=== PATIENT | female | born 1965 | race Caucasian/White ===

== ENCOUNTER → 2023-11-17 14:51 | Outpatient (CLI) | payer OTHER, SELFPAY | PROVIDERS: PCP Family Medicine; Visit Provider Family Medicine | DX: R07.0 Pain in throat (principal) | CPT/HCPCS: 87070; 87147 ==

== ENCOUNTER → 2025-07-27 11:25 | Outpatient (CLI) | payer OTHER, SELFPAY ==
[2025-07-27 19:32] LABS: Cholesterol 180 mg/dL (140-199); HDL Cholesterol 63 mg/dL (40-60); Triglycerides 72 mg/dL (35-150)
== END ==
PROVIDERS: PCP Family Medicine
DX: I65.22 Occlusion and stenosis of left carotid artery (principal); Z13.220 Encounter for screening for lipoid disorders
CPT/HCPCS: 80061